=== PATIENT | male | born 1975 | race Caucasian/White ===

== ENCOUNTER 2022-01-28 08:09 | Day surgery (SDC) | payer OTHER ==
[2022-01-28] MEDS ORDERED: Depo-Medrol 40 MG/ML IM ONE (08:10)
[2022-01-28] MEDS ORDERED: Sodium Chloride 0.9(Preservative Free) 10 ML IJ ONE (08:10)
[2022-01-28] MEDS ORDERED: Lactated Ringers 1,000 ML IV ONE (10:08)
--- NOTE | 2022-01-28 11:58 | XRAY ---
Indication: Right L4-S1 transforaminal DRE Intraoperative fluoroscopy provided for 44 seconds. 3 digital spot image submitted for interpretation demonstrates posterior needle tips projecting over the expected right L3 and L4 nerve roots. Small amount of contrast injected for needle tip placement. Correlate with intraoperative findings/report.
--- NOTE | 2022-01-28 12:12 | XRAY ---
44 seconds fluoroscopy time in surgery for right L4-S1 transforaminal DRE.
== END 2022-01-28 11:06 | disposition home or self-care (01) ==
LOC: SDC-PAIN 08:09
PROVIDERS: ATTEND Psychiatry & Neurology Pain Medicine
DX: M54.16 Radiculopathy, lumbar region (principal); E11.9 Type 2 diabetes mellitus without complications; I10 Essential (primary) hypertension; Z79.899 Other long term (current) drug therapy
CPT/HCPCS: 64483; 64484; 72100; 77003; 82947; J1030; Q9966

== ENCOUNTER 2022-05-05 14:58 | Day surgery (SDC) | payer OTHER ==
[2022-05-05] MEDS ORDERED: XYLOCAINE-MPF 1% 5ML SDV IJ ONE (14:59)
[2022-05-05] MEDS ORDERED: Lactated Ringers 1,000 ML IV ONE (16:45)
== END 2022-05-05 17:50 | disposition home or self-care (01) ==
LOC: SDC-PAIN 14:58
PROVIDERS: ATTEND Psychiatry & Neurology Pain Medicine
DX: M54.12 Radiculopathy, cervical region (principal); E11.9 Type 2 diabetes mellitus without complications; Z79.899 Other long term (current) drug therapy
CPT/HCPCS: 62321; 82947

== ENCOUNTER 2022-06-16 07:54 | Day surgery (SDC) | payer OTHER ==
[2022-06-16] MEDS ORDERED: Depo-Medrol 40 MG/ML IM ONE (07:55)
[2022-06-16] MEDS ORDERED: BUPIVACAINE 0.5% VIAL IJ ONE (07:55)
[2022-06-16] MEDS ORDERED: Lactated Ringers 1,000 ML IV ONE (10:34)
--- NOTE | 2022-06-16 11:59 | XRAY ---
Indication: Left shoulder injection. Intraoperative fluoroscopy provided for 13 seconds. 2 digital spot images submitted for interpretation demonstrate needle tip projecting over the left glenohumeral joint superiorly. Second needle tip subacromial. Small amount of contrast injected for both needle tip placement. Correlate with intraoperative findings/report.
--- NOTE | 2022-06-16 11:59 | XRAY ---
Indication: Right shoulder injection. Intraoperative fluoroscopy provided for 13 seconds. 2 digital spot images submitted for interpretation demonstrate needle tip projecting over the right glenohumeral joint superiorly. Second needle tip subacromial. Small amount of contrast injected for both needle tip placement. Correlate with intraoperative findings/report.
--- NOTE | 2022-06-16 12:01 | XRAY ---
13 seconds fluoroscopy time in surgery for intra-articular and sub acromial injections of the left shoulder.
--- NOTE | 2022-06-16 12:01 | XRAY ---
16 seconds fluoroscopy time in surgery for intra-articular and sub acromial injections of the right shoulder.
[2022-06-16] MEDS ORDERED: DIPRIVAN 200 MG/20 ML IV ONE (15:53)
== END 2022-06-16 10:00 | disposition home or self-care (01) ==
LOC: SDC-PAIN 07:54
PROVIDERS: ATTEND Psychiatry & Neurology Pain Medicine
DX: M19.012 Primary osteoarthritis, left shoulder (principal); M19.011 Primary osteoarthritis, right shoulder; M75.52 Bursitis of left shoulder; M75.51 Bursitis of right shoulder; E11.9 Type 2 diabetes mellitus without complications; Z79.899 Other long term (current) drug therapy
CPT/HCPCS: 20610; 73030; 77002; 82947; J1030; J2704; Q9966